=== PATIENT | female | born 1985 | race African-American/Black ===

== ENCOUNTER 2017-12-27 12:33 | Emergency (ER) | payer MEDICAID, OTHER ==
[~2017-12-27] VITALS: Ht 170.2 cm; Wt 120.0 kg
[~2017-12-27 12:33] MED LIST: FERR1TAB25 PO; FOLI-43 PO; LEVE1000 PO; PREN1TAB49 PO; VITA1200 SL
[2017-12-27 15:14] LABS: BASOPHILS % 0.7 % (0.0-2.0); EOSINOPHILS % 4.1 % (0.0-5.0); HEMATOCRIT. 33.1 % (36.0-48.0); HEMOGLOBIN. 10.6 g/dL (12.0-16.0); LYMPHOCYTES % 42.5 % (20.0-50.0); MEAN CORPUSCULAR HEMOGLOBIN 21.4 pg (28.0-32.0); MEAN CORPUSCULAR VOLUME 66.8 fL (81.0-99.0); MEAN PLATELET VOLUME 8.2 fl (7.4-10.4); MONOCYTES % 5.6 % (2.0-8.0); NEUTROPHILS % 47.1 % (40.0-76.0); PLATELET 299 x1000/uL (130-400); RED BLOOD CELL COUNT 4.96 mill/uL (4.2-5.4); RED CELL DISTRIBUTION WIDTH 15.5 % (11.6-14.6)
[2017-12-27 15:18] LABS: CHLORIDE 106 mEq/L (98-107)
[2017-12-27 15:26] LABS: ETHANOL BLOOD < 10 mg/dL
[2017-12-27 15:40] LABS: CLARITY URINE CLEAR (CLEAR); COLOR URINE YELLOW (YELLOW); KETONES URINE NEGATIVE (NEGATIVE); LEUKOCYTE ESTERASE URINE NEGATIVE (NEGATIVE); NITRITE URINE NEGATIVE (NEGATIVE); OCCULT BLOOD URINE NEGATIVE (NEGATIVE); PH URINE 5.5 (4.5-8.0); PROTEIN URINE NEGATIVE (NEGATIVE); SPECIFIC GRAVITY URINE 1.019 (1.005-1.030); UROBILINOGEN URINE 0.2 E.U./dL (0.2-1.0)
[2017-12-27 15:57] LABS: PLATELET ESTIMATE NORMAL
[2017-12-27 15:57] LABS: *AMPHETAMINES SCREEN URINE NEGATIVE (NEGATIVE); OPIATES URINE SCREEN NEGATIVE (NEGATIVE); PHENCYCLIDINE URINE SCREEN NEGATIVE (NEGATIVE)
[2017-12-27 15:58] LABS: *BARBITURATES SCREEN URINE NEGATIVE (NEGATIVE); *BENZODIAZEPINES SCREEN URINE NEGATIVE (NEGATIVE); *COCAINE SCREEN URINE NEGATIVE (NEGATIVE); METHADONE URINE SCREEN NEGATIVE (NEGATIVE)
[2017-12-27 15:59] LABS: CANNABINOID URINE SCREEN PRESUMTIVE POSITIVE (NEGATIVE)
[2017-12-27] MEDS ORDERED: LEVETIRACETAM 500MG PREMIX 100 ML IV NR (16:15)
[2017-12-27] MEDS ORDERED: SODIUM CHLORIDE 0.9% 1,000 ML IV NR (16:15)
[2017-12-27 17:13] VITALS: BP 103/86
== END 2017-12-27 18:02 | disposition home or self-care (01) ==
LOC: ER 12:33
DX: G40.909 Epilepsy, unspecified, not intractable, without status epilepticus (principal); D50.9 Iron deficiency anemia, unspecified; E88.09 Other disorders of plasma-protein metabolism, not elsewhere classified; I10 Essential (primary) hypertension; F31.9 Bipolar disorder, unspecified; F12.10 Cannabis abuse, uncomplicated; R55 Syncope and collapse; Z79.899 Other long term (current) drug therapy; Z98.51 Tubal ligation status
CPT/HCPCS: 36415; 80053; 80305; 81003; 81025; 82962; 85025; 96365; 99284; G0482; J1953

== ENCOUNTER 2019-05-07 09:45 | Emergency (ER) | payer MEDICAID ==
[~2019-05-07] VITALS: Ht 157.5 cm; Wt 122.0 kg
[~2019-05-07 09:45] MED LIST changes: -PREN1TAB49 PO
[2019-05-07 09:48] VITALS: BP 144/84
[2019-05-07] MEDS ORDERED: IBUPROFEN 600MG TABLET PO ONE (10:15)
== END 2019-05-07 11:54 | disposition home or self-care (01) ==
LOC: ER 09:57
DX: S80.12XA Contusion of left lower leg, initial encounter (principal); S80.11XA Contusion of right lower leg, initial encounter; V49.40XA Driver injured in collision with unspecified motor vehicles in traffic accident, initial encounter; Y93.89 Activity, other specified; Y92.410 Unspecified street and highway as the place of occurrence of the external cause; G40.909 Epilepsy, unspecified, not intractable, without status epilepticus
CPT/HCPCS: 73590; 81025; 99283

== ENCOUNTER 2022-03-19 07:38 | Emergency (ER) | payer MEDICAID ==
[~2022-03-19] VITALS: Ht 167.6 cm; Wt 113.0 kg
[2022-03-19] MEDS ORDERED: ACETAMINOPHEN 325MG TABLET PO STA (08:33)
[2022-03-19] MEDS ORDERED: LEVETIRACETAM 1000MG PREMIX 100 ML IV ONE (08:45)
[2022-03-19 09:21] LABS: BASOPHILS % 0.2 % (0.0-2.0); CHLORIDE 106 mEq/L (98-107); EOSINOPHILS % 3.2 % (0.0-5.0); HEMATOCRIT. 33.9 % (36.0-48.0); HEMOGLOBIN. 10.7 g/dL (12.0-16.0); LYMPHOCYTES % 45.5 % (20.0-50.0); MEAN CORPUSCULAR VOLUME 66.5 fL (81.0-99.0); MEAN PLATELET VOLUME 7.9 fl (7.4-10.4); MONOCYTES % 5.5 % (2.0-8.0); NEUTROPHILS % 45.6 % (40.0-76.0); PLATELET 272 x1000/uL (130-400); RED BLOOD CELL COUNT 5.09 mill/uL (4.2-5.4); RED CELL DISTRIBUTION WIDTH 14.8 % (11.6-14.6)
[2022-03-19 09:27] LABS: ETHANOL BLOOD < 10 mg/dL; PHOSPHORUS 2.3 mg/dL (2.5-4.9)
[2022-03-19 09:31] LABS: HCG SCREEN NEGATIVE
[2022-03-19 09:47] LABS: CLARITY URINE CLOUDY (CLEAR); COLOR URINE YELLOW (YELLOW); KETONES URINE TRACE (NEGATIVE); LEUKOCYTE ESTERASE URINE TRACE (NEGATIVE); NITRITE URINE NEGATIVE (NEGATIVE); OCCULT BLOOD URINE NEGATIVE (NEGATIVE); PROTEIN URINE 1+ (NEGATIVE); SPECIFIC GRAVITY URINE 1.028 (1.005-1.030)
[2022-03-19 10:04] LABS: *AMPHETAMINES SCREEN URINE NEGATIVE (NEGATIVE); *BARBITURATES SCREEN URINE NEGATIVE (NEGATIVE); *BENZODIAZEPINES SCREEN URINE NEGATIVE (NEGATIVE); *COCAINE SCREEN URINE NEGATIVE (NEGATIVE); METHADONE URINE SCREEN NEGATIVE (NEGATIVE); OPIATES URINE SCREEN NEGATIVE (NEGATIVE); PHENCYCLIDINE URINE SCREEN NEGATIVE (NEGATIVE)
[2022-03-19 10:09] LABS: CANNABINOID URINE SCREEN PRESUMTIVE POSITIVE (NEGATIVE)
[2022-03-19 10:14] LABS: PLATELET ESTIMATE NORMAL
[2022-03-19] MEDS ORDERED: POTASSIUM-SODIUM PHOSPHATE POWDER PACKET PO ONE (10:15)
[2022-03-19] MEDS ORDERED: POTASSIUM PHOS,M-BASIC-D-BASIC 30 MMOL in SODIUM CHLORIDE 0.9% 500 ML IV SCH (10:30)
[2022-03-19 13:16] VITALS: BP 101/70
== END 2022-03-19 13:23 | disposition home or self-care (01) ==
LOC: ER 07:38
DX: R56.9 Unspecified convulsions (principal); F31.9 Bipolar disorder, unspecified; Z98.51 Tubal ligation status; Z79.899 Other long term (current) drug therapy
CPT/HCPCS: 36415; 80053; 80305; 80320; 81003; 81025; 82962; 83735; 84100; 84703; 85025; 96365; 96367; 99285; J1953; J3490; J7040; Z7610; G0480